=== PATIENT | male | born 1960 | race Caucasian/White ===

== ENCOUNTER → 2019-05-21 | Outpatient (CLI) | payer MEDICAID | END | disposition home or self-care (01) | LOC: Rad HDHVI 14:46 | PROVIDERS: ATTEND Internal Medicine Cardiovascular Disease | DX: I34.0 Nonrheumatic mitral (valve) insufficiency (principal); R00.1 Bradycardia, unspecified; I10 Essential (primary) hypertension; R55 Syncope and collapse | CPT/HCPCS: 93306 ==

== ENCOUNTER → 2019-06-09 | Outpatient (CLI) | payer MEDICAID ==
[~2019-06-09] VITALS: Ht 172.7 cm; Wt 77.1 kg
== END | disposition home or self-care (01) ==
LOC: Rad HDHVI 07:57
PROVIDERS: ATTEND Internal Medicine Cardiovascular Disease
DX: I10 Essential (primary) hypertension (principal); R55 Syncope and collapse; R00.1 Bradycardia, unspecified; I25.10 Atherosclerotic heart disease of native coronary artery without angina pectoris
CPT/HCPCS: 78452; 93017; 96374; A9500

== ENCOUNTER → 2019-07-27 | Outpatient (CLI) | payer MEDICAID ==
[~2019-07-27] MED LIST: BENA20TA PO
[2019-07-27 09:50] VITALS: BP 143/83
--- NOTE | 2019-07-27 09:50 | NUR ---
PT. TO CLINIC FOR PREOP EKG FOR UPCOMING LHC AT [facility] SATURDAY. PT. HAS HAD LABS AND CXR THIS AM.
--- NOTE | 2019-07-27 10:05 | NUR ---
PRE OP EKG DONE SHOW NSR AT 59 WITH NO ECTOPY. PT. GIVEN COPY OF EKG WITH INSTRUCTIONS TO TAKE TO HOSP. FOR FOLLOW UP INTERVIEW.
[2019-07-27 10:10] VITALS: BP 145/84
--- NOTE | 2019-07-27 10:10 | NUR ---
Pre-Op Discharge Summary: See e-MAR for any medications given for this visit. Pre-op orders received and carried out per MD of EKG, LABS and chest xrays. Patient given a copy of EKG with instructions to go to [facility] out patient for further follow up care.
--- NOTE | 2019-07-27 10:15 | NUR ---
CHARGES: EKG, CLINIC VISIT
[2019-07-27 12:31] LABS: Basophils # (auto) 0.1 uL; Basophils % (auto) 1.7 % (0.0-2.0); Eosinophils # (auto) 0.1 uL; Eosinophils % (auto) 1.8 % (0.0-7.0); Hematocrit 41.4 % (41.0-53.0); Hemoglobin 14.5 g/dL (13.5-17.5); Lymphocytes # (auto) 1.3 uL; Lymphocytes % (auto) 22.6 % (10.0-50.0); Mean Corpuscular Hemoglobin 32.1 pg (28.0-32.0); Mean Corpuscular Hgb Conc. 34.9 g/dL (32.0-36.0); Monocytes # (auto) 0.3 uL; Monocytes % (auto) 6.2 % (0.0-12.0); Neutrophils # (auto) 3.8 uL; Neutrophils % (auto) 67.7 % (37.0-80.0); Nucleated Red Blood Cells % 0.4 %; Platelet Count (auto) 216 10^3/uL (140-450); Red Cell Distribution Width 13.3 % (11.8-14.3); White Blood Cell 5.6 10^3/uL (4.4-10.8)
[2019-07-27 12:43] LABS: INR 1.01 (0.9-1.15)
[2019-07-27 13:07] LABS: Potassium 3.9 mmol/L (3.5-5.1)
[2019-07-27 13:40] LABS: BUN/Creatinine Ratio 14.9; Calcium 9.2 mg/dL (8.5-10.1)
== END | disposition home or self-care (01) ==
LOC: Rad HDHVI 09:43
PROVIDERS: ATTEND Internal Medicine Cardiovascular Disease
DX: Z01.818 Encounter for other preprocedural examination (principal); I70.0 Atherosclerosis of aorta; R79.1 Abnormal coagulation profile; I10 Essential (primary) hypertension; D64.9 Anemia, unspecified
CPT/HCPCS: 36415; 71046; 80048; 85025; 85610; 85730; 93005; G0463

== ENCOUNTER 2019-07-30 06:39 | Day surgery (SDC) | payer MEDICAID ==
[~2019-07-30] VITALS: Ht 172.7 cm; Wt 77.1 kg
[2019-07-30] MEDS ORDERED: fentaNYL CITRATE 100 MCG/2 ML VL ONE (07:44)
[2019-07-30] MEDS ORDERED: MIDAZOLAM HCL 1MG/1ML-2 ML VIAL ONE (07:44)
[2019-07-30] MEDS ORDERED: IOHEXOL 350 MG/ML 100ML IJ ONE ×2 (07:44→08:28)
[2019-07-30] MEDS ORDERED: ANGIOMAX 250 MG VIAL IV ONE (07:44)
[2019-07-30] MEDS ORDERED: SODIUM CHL 0.9% 0 ML ONE (07:44)
[2019-07-30] MEDS ORDERED: LIDOCAINE 2%HCL (LOCAL ANESTH.) INJ 20ML MDV ONE (07:45)
[2019-07-30] MEDS ORDERED: BENA20TA PO (09:47)
== END 2019-07-30 11:25 | disposition home or self-care (01) ==
LOC: CATH 06:39
PROVIDERS: ATTEND Internal Medicine Cardiovascular Disease
DX: I25.10 Atherosclerotic heart disease of native coronary artery without angina pectoris (principal); I65.22 Occlusion and stenosis of left carotid artery; J44.9 Chronic obstructive pulmonary disease, unspecified; I10 Essential (primary) hypertension; E78.5 Hyperlipidemia, unspecified; Z79.899 Other long term (current) drug therapy; Z87.891 Personal history of nicotine dependence; Z86.73 Personal history of transient ischemic attack (TIA), and cerebral infarction without residual deficits; Z88.8 Allergy status to other drugs, medicaments and biological substances; Z88.7 Allergy status to serum and vaccine
CPT/HCPCS: 36223; 93005; 93458; C1760; C1769; C1894; J1644; J2250; J3010; J7030; Q9967; 99152; 99153